=== PATIENT | male | born 2000 | race Hispanic/Latino ===

== ENCOUNTER 2022-03-18 06:44 | Emergency (ER) | payer MEDICAID ==
[2022-03-18] MEDS ORDERED: Bicillin LA 1.2 MILLION UNITS/2 ML SYRINGE ONE (07:51)
== END 2022-03-18 08:15 | disposition home or self-care (01) ==
LOC: CSHERS 06:44
DX: J02.0 Streptococcal pharyngitis (principal); F17.210 Nicotine dependence, cigarettes, uncomplicated
CPT/HCPCS: 96372; 99283; J0561